=== PATIENT | female | born 1965 | race Caucasian/White ===

== ENCOUNTER → 2021-03-03 09:37 | Outpatient (BNVA) | payer OTHER, SELFPAY | PROVIDERS: Referring Provider Physician Assistant; Visit Provider Physician Assistant ==

== ENCOUNTER → 2021-03-11 08:03 | Outpatient (BNVA) | payer OTHER, SELFPAY | PROVIDERS: PCP Nurse Practitioner Adult Health; Visit Provider Surgery ==